=== PATIENT | male | born 1940 | race Caucasian/White ===

== ENCOUNTER → 2017-11-07 | Outpatient (CLI) | payer MEDICARE ==
[~2017-11-07] MED LIST: REGADENOSON 0.4 MG/5 ML SYRINGE ONE
== END | disposition home or self-care (01) ==
LOC: CFH 07:36
PROVIDERS: ATTEND Internal Medicine Cardiovascular Disease
DX: I25.9 Chronic ischemic heart disease, unspecified (principal); I21.19 ST elevation (STEMI) myocardial infarction involving other coronary artery of inferior wall; I42.2 Other hypertrophic cardiomyopathy
CPT/HCPCS: 78452; 93017; A9502; J2785

== ENCOUNTER 2018-02-04 09:44 | Day surgery (SDC) | payer MEDICARE ==
[~2018-02-04] VITALS: Ht 175.3 cm; Wt 73.0 kg
[2018-02-04] MEDS ORDERED: SODIUM CHLORIDE 0.9% 1,000 ML IV ONE (10:04)
[2018-02-04 10:27] VITALS: BP 113/68
[2018-02-04 11:43] LABS: BASOPHILS # (AUTO) 0.02 x10^3/uL (0-0.1); BASOPHILS % (AUTO) 0 % (0-1); EOSINOPHILS # (AUTO) 0.06 x10^3/uL (0-0.4); EOSINOPHILS % (AUTO) 1 % (1-7); LYMPHOCYTES % (AUTO) 28 % (22-44); MD NO; MEAN CORPUSCULAR HEMOGLOBIN 30.9 pg (27.5-34.5); MEAN CORPUSCULAR HGB CONC 33.9 g/dL (33.2-36.2); MEAN CORPUSCULAR VOLUME 91.1 fL (81-97); MONOCYTES % (AUTO) 8 % (2-9); NEUTROPHILS # (AUTO) 3.31 x10^3/uL (1.8-6.8); NEUTROPHILS % (AUTO) 63 % (42-75); PLATELET COUNT 213 x10^3/uL (130-400); RED BLOOD COUNT 4.35 x10^6/uL (4.38-5.82); RED CELL DISTRIBUTION WIDTH 13.2 % (9.4-14.8)
[2018-02-04] MEDS ORDERED: MIDAZOLAM 1 MG/ML, 5ML ONE (12:24)
[2018-02-04] MEDS ORDERED: NITROGLYCERIN 5 MG/ML, 10ML ONE (12:24)
[2018-02-04] MEDS ORDERED: FENTANYL PF 100 MCG/2ML ONE (12:24)
[2018-02-04] MEDS ORDERED: BIVALIRUDIN 250 MG ONE (12:24)
[2018-02-04] MEDS ORDERED: VERAPAMIL 2.5 MG/ML, 2ML ONE (12:24)
[2018-02-04] MEDS ORDERED: TICAGRELOR 90 MG TABLET ONE (12:24)
[2018-02-04] MEDS ORDERED: HEPARIN 1,000 UNITS/ML, 10ML ONE (12:25)
[2018-02-04] MEDS ORDERED: LIDOCAINE-MPF 1%, 5ML ONE (12:25)
[2018-02-04] MEDS ORDERED: OMEG-76 PO (13:36)
[2018-02-04] MEDS ORDERED: CALC-649 PO (13:37)
[2018-02-04] MEDS ORDERED: CHOL100011 PO (13:38)
[2018-02-04] MEDS ORDERED: ZINC50CA PO (13:38)
[2018-02-04] MEDS ORDERED: METO25TA2 PO (13:39)
[2018-02-04] MEDS ORDERED: OMEG-160 PO (13:40)
== END 2018-02-04 15:15 | disposition home or self-care (01) ==
LOC: CACL 09:44
PROVIDERS: ATTEND Internal Medicine Cardiovascular Disease
DX: I25.119 Atherosclerotic heart disease of native coronary artery with unspecified angina pectoris (principal); I42.2 Other hypertrophic cardiomyopathy; E78.5 Hyperlipidemia, unspecified; Z88.5 Allergy status to narcotic agent
CPT/HCPCS: 36415; 85025; 93458; 99156; C1769; C1894; J1644; J2250; J3010; Q9967; J0583

== ENCOUNTER → 2018-06-25 | Outpatient (CLI) | payer MEDICARE ==
[~2018-06-25] MED LIST changes: +CALC-649 PO; +CHOL100011 PO; +METO25TA2 PO; +OMEG-160 PO; +OMEG-76 PO; -REGADENOSON 0.4 MG/5 ML SYRINGE ONE; +ZINC50CA PO
== END | disposition home or self-care (01) ==
LOC: CFH 08:58
PROVIDERS: ATTEND Nurse Practitioner Family
DX: K42.9 Umbilical hernia without obstruction or gangrene (principal)
CPT/HCPCS: 76705

== ENCOUNTER 2019-09-11 15:52 | Outpatient (CLI) | payer MEDICARE ==
[~2019-09-11 15:52] MED LIST changes: +FISH OIL 1,3601 EACH PO; -OMEG-160 PO
== END 2019-09-11 23:59 | disposition home or self-care (01) ==
LOC: CFH 15:52
PROVIDERS: ATTEND Physician Assistant Medical
DX: I08.8 Other rheumatic multiple valve diseases (principal); E78.5 Hyperlipidemia, unspecified; I25.10 Atherosclerotic heart disease of native coronary artery without angina pectoris
CPT/HCPCS: 93306

== ENCOUNTER 2020-05-18 12:58 | Outpatient (CLI) | payer MEDICARE | END 2020-05-18 23:59 | disposition home or self-care (01) | LOC: CVU 12:58 | PROVIDERS: ATTEND Internal Medicine Cardiovascular Disease | DX: I08.8 Other rheumatic multiple valve diseases (principal); I48.0 Paroxysmal atrial fibrillation; R60.9 Edema, unspecified | CPT/HCPCS: 93306; 93356; 93970 ==